=== PATIENT | male | born 1935 | race Two or more races ===

== ENCOUNTER 2020-05-09 12:00 | Outpatient (CLI) | payer OTHER | END 2020-05-09 12:09 | disposition home or self-care (01) | LOC: RAD 12:00 | PROVIDERS: ATTEND Orthopaedic Surgery | DX: M25.652 Stiffness of left hip, not elsewhere classified (principal) ==

== ENCOUNTER 2020-07-03 09:43 | Outpatient (CLI) | payer OTHER | END 2020-07-03 09:49 | disposition home or self-care (01) | LOC: RAD 09:43 | PROVIDERS: ATTEND Orthopaedic Surgery | DX: M25.562 Pain in left knee (principal) ==